=== PATIENT | female | born 1950 | race Caucasian/White ===

== ENCOUNTER 2016-08-04 09:12 | Outpatient (CLI) | payer MEDICARE, OTHER ==
[2016-08-04 14:14] LABS: Cardiac Risk 2.8 (Less than 4.5)
== END 2016-08-04 09:13 | disposition home or self-care (01) ==
LOC: NAVSJIPCSP 09:12
PROVIDERS: ATTEND Internal Medicine
DX: E78.5 Hyperlipidemia, unspecified (principal)
CPT/HCPCS: 36415; 80061

== ENCOUNTER 2016-11-01 10:20 | Outpatient (CLI) | payer MEDICARE ==
[2016-11-01 13:59] LABS: Cardiac Risk 3.1 (Less than 4.5)
== END 2016-11-01 10:21 | disposition home or self-care (01) ==
LOC: NAVSJIPCSP 10:20
PROVIDERS: ATTEND Internal Medicine
DX: E78.5 Hyperlipidemia, unspecified (principal); Z79.899 Other long term (current) drug therapy
CPT/HCPCS: 36415; 80061